=== PATIENT | female | born 1965 ===

== ENCOUNTER 2021-11-04 13:23 | Inpatient (IN) | payer MEDICAID ==
[2021-11-04 21:44] LABS: Basophils # (Auto) 0.1 K/mm3 (0.0-0.1); Basophils % (Auto) 1.5 % (0.0-1.8); Eosinophils # (Auto) 0.4 K/mm3 (0.0-0.4); Eosinophils % (Auto) 4.7 % (0.0-4.3); Hematocrit 39.2 % (30.3-42.9); Hemoglobin 13.1 gm/dl (10.1-14.3); Lymphocytes # (Auto) 1.8 K/mm3 (1.2-5.4); Lymphocytes % (Auto) 18.6 % (13.4-35.0); Mean Corpuscular HGB Conc 33 % (30-34); Mean Corpuscular Volume 93 fl (79-97); Monocytes # (Auto) 0.7 K/mm3 (0.0-0.8); Platelet Count 263 K/mm3 (140-440); Red Cell Distribution Width 13.5 % (13.2-15.2)
[2021-11-04 22:05] LABS: Calcium 9.9 mg/dL (8.4-10.2); Chol/HDL Ratio 2.39 %
[2021-11-04 22:12] LABS: Hepatitis B Surface Antigen Non-Reactive (Negative); Hepatitis C Virus Antibody Non-Reactive (NonReactive)
[2021-11-04] MEDS: TOPIRAMATE TAB 25 MG TAB PO SCH (23:33)
[2021-11-04] MEDS: BENZTROPINE 1 MG TAB PO SCH (23:33)
[2021-11-05] MEDS: QUEtiapine 200 MG TAB PO SCH ×2 (00:04→21:48)
[2021-11-05] MEDS: LEVOTHYROXINE 25 MCG TAB PO SCH (06:20)
[2021-11-05] MEDS: BENZTROPINE 1 MG TAB PO SCH ×2 (10:35→21:48)
[2021-11-05] MEDS: TOPIRAMATE TAB 25 MG TAB PO SCH ×2 (10:35→21:48)
--- NOTE | 2021-11-05 13:29 | History and Physical Report ---
GP History & Physical - History of Present Illness Date of admission: 11/04/21 Date of Examination: 11/05/21 Reason for Admission: Danger to self, Failure of Outpatient Treatment, Severe anxiety/depression History of Present Illness: The patient was seen today. The patient says he's in a lot of pain and wants to . He says he has pain in his legs and back. The patient says he wants to walk into traffic. He verbalizes feeling depressed. He says he has a history of schizoaffective disorder and takes invega sustenna, seroquel and topamax. The patient says he has his invega yesterday. He denies hallucinations. PAST PSYCHIATRIC HISTORY: Diagnoses: Schizoaffective Suicide attempts or Self-harm behavior: Denies Prior psychiatric hospitalizations:: Denies Substance Abuse history: Denies Previous psychiatric medications tried: invega, topmax, seroquel Outpatient treatment: Yes PAST MEDICAL HISTORY: Back injury Family Psychiatric History None reported or documented SOCIAL HISTORY Marital Status: Single Living Arrangements: alone Employment Status: Disabled Access to guns/weapons: Denies Education: History of Abuse: Denies Legal History: Denies REVIEW OF SYSTEMS ROS cannot be reliably obtained from the patient due to her confusion and somnolence. Constitutional: Negative for weight loss ENT: Negative for stridor Respiratory: Negative for cough or hemoptysis All other systems reviewed and are negative Diagnoses: Schizoaffective Disorder Treatment Plan Patient will be admitted for inpatient psychiatric evaluation, medication adjus tment and close monitoring The patient's behavior, mood, sleep and appetite will be closely monitored. Patient will be enrolled in individual and group therapeutic sessions and encouraged to attend. Patient will be provided with a safe and structured environment. Patient's physical health needs will be addressed by the Hospitalist. Hospitalist Consulted Labs including CBC, CMP, Lipid profile and Hemoglobin A1C ordered Social Assessment will be completed and the Ink Blender will work with patient and family to ensure a suitable and safe disposition Medication adjustment will be made as clinically indicated Continued home meds Usual Wellness [facility]/Preservation: - Start Trazodone 50 mg po QHS PRN - Start [place]-3 for brain health, reduce impulsivity, and as adjunctive treatment for mood disorder, continue upon discharge given overall benefits. The patient agreed on the treatment plan, understood the risk, benefit, alternative treatment, potential consequence of no treatment, and gave informed consent. Legal Status: Voluntary Reaction to Hospitalization: Accepting Medications and Allergies Allergies Allergy/AdvReac Type Severity Reaction Status Date / Time haloperidol [From Haldol] Allergy Swelling Verified 11/04/21 20:28 Home Medications Medication Instructions Recorded Confirmed Last Taken Type Benztropine [Cogentin] 1 mg PO BID 11/04/21 11/04/21 Unknown History Cyclobenzaprine [Flexeril] 10 mg PO HS 11/04/21 11/04/21 Unknown History Duloxetine HCl [Cymbalta] 60 mg PO DAILY 11/04/21 11/04/21 Unknown History Levothyroxine [Synthroid] 25 mcg PO QAM 11/04/21 11/04/21 Unknown History Magnesium Oxide 400 mg PO BID 11/04/21 11/04/21 Unknown History Meloxicam [Mobic] 7.5 mg PO QDAY 11/04/21 11/04/21 Unknown History Paliperidone Palmitate [Invega 234 mg IM QMONTH 11/04/21 11/04/21 11/04/21 History Sustenna] 234 mg Pravastatin [Pravachol] 40 mg PO QHS 11/04/21 11/04/21 Unknown History Quetiapine Fumarate [SEROquel] 400 mg PO HS 11/04/21 11/04/21 Unknown History Topiramate [Topamax] 50 mg PO BID 11/04/21 11/04/21 Unknown History lisinopriL [Lisinopril] 20 mg PO DAILY 11/04/21 11/04/21 Unknown History Active Meds: Active Medications Benztropine Mesylate (Benztropine 1 Mg Tab) 1 mg PO BID [facility] Last Admin: 11/05/21 10:35 Dose: 1 mg Levothyroxine Sodium (Levothyroxine 25 Mcg Tab) 25 mcg PO DAILY@0600 [facility] Last Admin: 11/05/21 06:20 Dose: 25 mcg Quetiapine Fumarate (Quetiapine 200 Mg Tab) 400 mg PO QHS [facility] Last Admin: 11/05/21 00:04 Dose: 400 mg Topiramate (Topiramate Tab 25 Mg Tab) 50 mg PO Q12HR [facility] Last Admin: 11/05/21 10:35 Dose: 50 mg Results - Results Labs/Vitals: Laboratory Last Values WBC 9.6 K/mm3 (4.5-11.0) 07/28/22 21:20 RBC 4.20 M/mm3 (3.65-5.03) 11/04/21 21:20 Hgb 13.1 gm/dl (10.1-14.3) 11/04/21 21:20 Hct 39.2 % (30.3-42.9) 11/04/21 21:20 MCV 93 fl (79-97) 11/04/21 21:20 MCH 31 pg (28-32) 11/04/21 21:20 MCHC 33 % (30-34) 11/04/21 21:20 RDW 13.5 % (13.2-15.2) 11/04/21 21:20 Plt Count 263 K/mm3 (140-440) 11/04/21 21:20 Lymph % (Auto) 18.6 % (13.4-35.0) 11/04/21 21:20 [place] % (Auto) 7.0 % (0.0-7.3) 11/04/21 21:20 Eos % (Auto) 4.7 % (0.0-4.3) H 11/04/21 21:20 Baso % (Auto) 1.5 % (0.0-1.8) 11/04/21 21:20 Lymph # (Auto) 1.8 K/mm3 (1.2-5.4) 11/04/21 21:20 [place] # (Auto) 0.7 K/mm3 (0.0-0.8) 11/04/21 21:20 Eos # (Auto) 0.4 K/mm3 (0.0-0.4) 11/04/21 21:20 Baso # (Auto) 0.1 K/mm3 (0.0-0.1) 11/04/21 21:20 Seg Neutrophils % 68.2 % (40.0-70.0) 11/04/21 21:20 Seg Neutrophils # 6.5 K/mm3 (1.8-7.7) 11/04/21 21:20 Sodium 139 mmol/L (137-145) 11/04/21 21:20 Potassium 4.1 mmol/L (3.6-5.0) 11/04/21 21:20 Chloride 104.4 mmol/L (98-107) 11/04/21 21:20 Carbon Dioxide 24 mmol/L (22-30) 11/04/21 21:20 Anion Gap 15 mmol/L 11/04/21 21:20 BUN 13 mg/dL (7-17) 11/04/21 21:20 Creatinine 1.0 mg/dL (0.6-1.2) 11/04/21 21:20 Estimated GFR 57 ml/min 11/04/21 21:20 BUN/Creatinine Ratio 13 % 11/04/21 21:20 Glucose 106 mg/dL (65-100) H 11/04/21 21:20 POC Glucose 100 mg/dL (70-105) 11/05/21 02:36 Hemoglobin A1c 5.8 % (4-6) 11/04/21 21:20 Calcium 9.9 mg/dL (8.4-10.2) 11/04/21 21:20 Total Bilirubin 0.30 mg/dL (0.1-1.2) 11/04/21 21:20 AST 33 units/L (5-40) 11/04/21 21:20 ALT 50 units/L (7-56) 11/04/21 21:20 Alkaline Phosphatase 119 units/L (35-129) 11/04/21 21:20 Total Protein 7.1 g/dL (6.3-8.2) 11/04/21 21:20 Albumin 4.0 g/dL (3.9-5) 11/04/21 21:20 Albumin/Globulin Ratio 1.3 % 11/04/21 21:20 Triglycerides 126 mg/dL (2-149) 11/04/21 21:20 Cholesterol 110 mg/dL (50-199) 11/04/21 21:20 LDL Cholesterol Direct 53 mg/dL (50-130) 11/04/21 21:20 HDL Cholesterol 46 mg/dL (40-59) 11/04/21 21:20 Cholesterol/HDL Ratio 2.39 % 11/04/21 21:20 TSH 3.230 mlU/mL (0.270-4.200) 11/04/21 21:20 Hepatitis A IgM Ab Non-reactive (NonReactive) 11/04/21 21:20 Hep Bs Antigen Non-reactive (Negative) 11/04/21 21:20 Hep B Core IgM Ab Non-reactive (NonReactive) 11/04/21 21:20 Hepatitis C Antibody Non-reactive (NonReactive) 11/04/21 21:20 Last Vital Signs Temp 98.3 F 11/05/21 04:11 Pulse 88 11/05/21 04:11 Resp 16 11/05/21 04:11 BP 127/59 11/05/21 04:11 Pulse Ox 96 11/05/21 04:11 Physical Examination - Constitutional Vitals: Vital Signs Temp Pulse Resp BP Pulse Ox 98.3 F 88 16 127/59 96 11/05/21 04:11 11/05/21 04:11 11/05/21 04:11 11/05/21 04:11 11/05/21 04:11 Temperature -Last 24 Hours Temperature 98.3 F Mental Status Exam - Vital signs Last Vital Signs Temp 98.3 F 11/05/21 04:11 Pulse 88 11/05/21 04:11 Resp 16 11/05/21 04:11 BP 127/59 11/05/21 04:11 Pulse Ox 96 11/05/21 04:11 Physician Certification - Certification Statement Physician Certification Statement: This is an acknowledgement statement that NEIL FERNANDEZ is a 56 year old F who requires inpatient psychiatric admission for treatment which could reasonably be expected to improve the patient's condition for Estimated period of time patient will need to remain in the hospital: [ ] Plan for post-hospital care: [ ]
[2021-11-05] MEDS ORDERED: NON-FORMULARY EACH (Duloxetine Hcl [Cymbalta] 60 MG Capsule.Dr) PO SCH (13:45)
--- NOTE | 2021-11-05 14:21 | Consultation ---
History of Present Illness - Reason for Consult Consult date: 11/05/21 Medical management - History of Present Illness Patient is a 56-year-old female past medical history of hypertension, hyper lipidemia, hypothyroidism, chronic back pain, depression, and schizoaffective disorder who presented due to thoughts of self-harm as a result of chronic back pain. Patient stated that desire to end her life. The patient has been admitted at [facility] for psychiatric evaluati on/treatment. The hospitalist service was consulted for medical management. Past History Past Medical History: hypertension, hyperlipidemia, other (Chronic back pain, depression, schizoaffective disorder) Past Surgical History: No surgical history Social history: lives with family, full code Family history: hypertension Medications and Allergies Allergies Allergy/AdvReac Type Severity Reaction Status Date / Time haloperidol [From Haldol] Allergy Swelling Verified 11/04/21 20:28 Home Medications Medication Instructions Recorded Confirmed Last Taken Type Benztropine [Cogentin] 1 mg PO BID 11/04/21 11/04/21 Unknown History Cyclobenzaprine [Flexeril] 10 mg PO HS 11/04/21 11/04/21 Unknown History Duloxetine HCl [Cymbalta] 60 mg PO DAILY 11/04/21 11/04/21 Unknown History Levothyroxine [Synthroid] 25 mcg PO QAM 11/04/21 11/04/21 Unknown History Magnesium Oxide 400 mg PO BID 11/04/21 11/04/21 Unknown History Meloxicam [Mobic] 7.5 mg PO QDAY 11/04/21 11/04/21 Unknown History Paliperidone Palmitate [Invega 234 mg IM QMONTH 11/04/21 11/04/21 11/04/21 History Sustenna] 234 mg Pravastatin [Pravachol] 40 mg PO QHS 11/04/21 11/04/21 Unknown History Quetiapine Fumarate [SEROquel] 400 mg PO HS 11/04/21 11/04/21 Unknown History Topiramate [Topamax] 50 mg PO BID 11/04/21 11/04/21 Unknown History lisinopriL [Lisinopril] 20 mg PO DAILY 11/04/21 11/04/21 Unknown History Active Meds: Active Medications Benztropine Mesylate (Benztropine 1 Mg Tab) 1 mg PO BID [facility] Last Admin: 11/05/21 10:35 Dose: 1 mg Cyclobenzaprine HCl (Cyclobenzaprine 10 Mg Tab) 10 mg PO HS [facility] Duloxetine HCl (Duloxetine 30 Mg Cap) 60 mg PO QDAY [facility] Levothyroxine Sodium (Levothyroxine 25 Mcg Tab) 25 mcg PO DAILY@0600 [facility] Last Admin: 11/05/21 06:20 Dose: 25 mcg Lisinopril (Lisinopril 20 Mg Tab) 20 mg PO DAILY [facility] Magnesium Oxide (Magnesium Oxide 400 Mg Tab) 400 mg PO BID [facility] Meloxicam (Meloxicam 7.5 Mg Tab) 7.5 mg PO QDAY [facility] Pravastatin Sodium (Pravastatin 40 Mg Tab) 40 mg PO QHS [facility] Quetiapine Fumarate (Quetiapine 200 Mg Tab) 400 mg PO QHS [facility] Last Admin: 11/05/21 00:04 Dose: 400 mg Topiramate (Topiramate Tab 25 Mg Tab) 50 mg PO Q12HR [facility] Last Admin: 11/05/21 10:35 Dose: 50 mg Review of Systems ROS unobtainable: due to mental status Exam - Constitutional Vitals: Temp Pulse Resp BP Pulse Ox 98.3 F 88 16 127/59 96 11/05/21 04:11 11/05/21 04:11 11/05/21 04:11 11/05/21 04:11 11/05/21 04:11 General appearance: Present: mild distress, well-nourished, obese - EENT Eyes: Present: PERRL, EOM intact ENT: hearing intact, clear oral mucosa - Neck Neck: Present: supple, normal ROM - Respiratory Respiratory effort: normal Respiratory: bilateral: CTA - Cardiovascular Rhythm: regular Heart Sounds: Present: S1 & S2 - Extremities Extremities: no ischemia, pulses intact, pulses symmetrical, No edema, normal t emperature, normal color Peripheral Pulses: within normal limits - Abdominal General gastrointestinal: Present: soft, non-tender, non-distended, normal bowel sounds Female genitourinary: Present: deferred - Rectal Rectal Exam: deferred - Integumentary Integumentary: Present: clear, warm, dry - Musculoskeletal Musculoskeletal: strength equal bilaterally - Psychiatric Psychiatric: agitated, depressed - Neurologic Neurologic: CNII-XII intact, moves all extremities - Allied Health Allied health notes reviewed: nursing Results - Labs CBC & Chem 7: 11/04/21 21:20 11/04/21 21:20 Labs: Abnormal lab results 11/04/21 11/04/21 Range/Units 21:20 21:20 Eos % (Auto) 4.7 H (0.0-4.3) % Glucose 106 H (65-100) mg/dL Assessment and Plan Patient is a 56-year-old female past medical history of hypertension, hyperlipidemia, hypothyroidism, chronic back pain, depression, and schizoaffective disorder who presented due to thoughts of self-harm as a result of chronic back pain. Patient stated that desire to end her life. The patient has been admitted at [facility] for psychiatric evaluation/treatment. The hospitalist service was consulted for medical management. #Suicidal ideation #Depression #Schizoaffective disorder Management per primary team #Hypertension #Hyperlipidemia - home medications: Lisinopril 20 mg daily and pravastatin 40 mg daily - current medications: Lisinopril 20 mg daily and pravastatin 40 mg daily - SBP goal <160 and DBP goal <90 while inpatient - continue to monitor #Hypothyroidism Continue home levothyroxine 25 mcg daily #Prediabetes Hemoglobin A1c 5.8 Continue to monitor #Chronic back pain Starting lidocaine patch to be applied to lower back + acetaminophen 500 mg every 6 hours as needed. #Morbid obesity #Weight loss counseling #Exercise counseling - BMI 44.3 - Counseled patient on the importance of weight loss, incorporating exercise, and dietary changes (lean meats, fresh fruits and vegetables, and water intake). Patient expresses understanding. - Time: +15 min #Advanced care planning -Disease education conducted, care plan discussed, diagnoses discussed, prognosis discussed, and patient acknowledges understanding with care plan -Time: +30 min Thank you for this interesting consult. The hospitalist service will continue to follow.
[2021-11-05] MEDS: CYCLOBENZAPRINE 10 MG TAB PO SCH (21:47)
[2021-11-05] MEDS: PRAVASTATIN 40 MG TAB PO SCH (21:48)
[2021-11-05] MEDS: MAGNESIUM OXIDE 400 MG TAB PO SCH (21:49)
[2021-11-05] MEDS ORDERED: QUEtiapine 200 MG TAB PO SCH (22:00)
[2021-11-06] MEDS: ACETAMINOPHEN 325 MG TAB PO PRN (04:11)
[2021-11-06] MEDS: LEVOTHYROXINE 25 MCG TAB PO SCH (06:10)
--- NOTE | 2021-11-06 08:33 | Progress Note ---
Subjective Date of service: 11/06/21 Principal diagnosis: Schizoaffective Subjective Comment: The patient was seen today. She says she is angry because another patient kept coming in her room and taking her things. She points at another patient. The patient says she didn't sleep all night because of her pain. She says the patient is making her suicidal. REVIEW OF SYSTEMS ROS cannot be reliably obtained from the patient due to her confusion and somn olence. Constitutional: Negative for weight loss ENT: Negative for stridor Respiratory: Negative for cough or hemoptysis All other systems reviewed and are negative MENTAL STATUS General Appearance and Behavior: age appropriate, good eye contact, cooperative with questioning and polite Cooperation: Cooperative Psychomotor Behavior: within normal limits Mood: angry Affect and affective range: Congruent with stated mood, tearful Thought Process: illogical, disorganized Thought Content: delusions, hallucinations Speech: Normal volume and Regular rate and rhythm Suicidal Ideation: Denies SI Homicidal Ideation: Denies HI Hallucinations: Denies Delusions: None elicited Impulse Control: intact Insight and Judgment: Limited Memory: Limited Attention: Distracted Orientation: alert and oriented Diagnoses: Schizoaffective Disorder Treatment Plan Patient will be admitted for inpatient psychiatric evaluation, medication adjustment and close monitoring The patient's behavior, mood, sleep and appetite will be closely monitored. Patient will be enrolled in individual and group therapeutic sessions and encouraged to attend. Patient will be provided with a safe and structured environment. Patient's physical health needs will be addressed by the Hospitalist. Hospitalist Consulted Labs including CBC, CMP, Lipid profile and Hemoglobin A1C ordered Social Assessment will be completed and the Nuclear Operator will work with patient and family to ensure a suitable and safe disposition Medication adjustment will be made as clinically indicated Increased Cymbalta 120mg po daily for depression and pain Usual Wellness [facility]/Preservation: - Start Trazodone 50 mg po QHS PRN - Start [place]-3 for brain health, reduce impulsivity, and as adjunctive treatment for mood disorder, continue upon discharge given overall benefits. The patient agreed on the treatment plan, understood the risk, benefit, alternative treatment, potential consequence of no treatment, and gave informed consent. Medications and Allergies Allergies Allergy/AdvReac Type Severity Reaction Status Date / Time haloperidol [From Haldol] Allergy Swelling Verified 11/04/21 20:28 Home Medications Medication Instructions Recorded Confirmed Last Taken Type Benztropine [Cogentin] 1 mg PO BID 11/04/21 11/04/21 Unknown History Cyclobenzaprine [Flexeril] 10 mg PO HS 11/04/21 11/04/21 Unknown History Duloxetine HCl [Cymbalta] 60 mg PO DAILY 11/04/21 11/04/21 Unknown History Levothyroxine [Synthroid] 25 mcg PO QAM 11/04/21 11/04/21 Unknown History Magnesium Oxide 400 mg PO BID 11/04/21 11/04/21 Unknown History Meloxicam [Mobic] 7.5 mg PO QDAY 11/04/21 11/04/21 Unknown History Paliperidone Palmitate [Invega 234 mg IM QMONTH 11/04/21 11/04/21 11/04/21 History Sustenna] 234 mg Pravastatin [Pravachol] 40 mg PO QHS 11/04/21 11/04/21 Unknown History Quetiapine Fumarate [SEROquel] 400 mg PO HS 11/04/21 11/04/21 Unknown History Topiramate [Topamax] 50 mg PO BID 11/04/21 11/04/21 Unknown History lisinopriL [Lisinopril] 20 mg PO DAILY 11/04/21 11/04/21 Unknown History Active Meds: Active Medications Acetaminophen (Acetaminophen 325 Mg Tab) 650 mg PO Q6H PRN PRN Reason: Pain, Mild (1-3) Last Admin: 11/06/21 04:11 Dose: 650 mg Benztropine Mesylate (Benztropine 1 Mg Tab) 1 mg PO BID [facility] Last Admin: 11/05/21 21:48 Dose: 1 mg Cyclobenzaprine HCl (Cyclobenzaprine 10 Mg Tab) 10 mg PO [facility] Last Admin: 11/05/21 21:47 Dose: 10 mg Duloxetine HCl (Duloxetine 30 Mg Cap) 60 mg PO QDAY [facility] Levothyroxine Sodium (Levothyroxine 25 Mcg Tab) 25 mcg PO DAILY@0600 [facility] Last Admin: 11/06/21 06:10 Dose: 25 mcg Lisinopril (Lisinopril 20 Mg Tab) 20 mg PO DAILY [facility] Magnesium Oxide (Magnesium Oxide 400 Mg Tab) 400 mg PO BID [facility] Last Admin: 11/05/21 21:49 Dose: 400 mg Meloxicam (Meloxicam 7.5 Mg Tab) 7.5 mg PO QDAY [facility] Pravastatin Sodium (Pravastatin 40 Mg Tab) 40 mg PO QHS [facility] Last Admin: 11/05/21 21:48 Dose: 40 mg Quetiapine Fumarate (Quetiapine 200 Mg Tab) 400 mg PO QHS [facility] Last Admin: 11/05/21 21:48 Dose: 400 mg Topiramate (Topiramate Tab 25 Mg Tab) 50 mg PO Q12HR [facility] Last Admin: 11/05/21 21:48 Dose: 50 mg Results - Results Labs/Vitals: Laboratory Last Values WBC 9.6 K/mm3 (4.5-11.0) 11/04/21 21:20 RBC 4.20 M/mm3 (3.65-5.03) 11/04/21 21:20 Hgb 13.1 gm/dl (10.1-14.3) 11/04/21 21:20 Hct 39.2 % (30.3-42.9) 11/04/21 21:20 MCV 93 fl (79-97) 11/04/21 21:20 MCH 31 pg (28-32) 11/04/21 21:20 MCHC 33 % (30-34) 11/04/21 21:20 RDW 13.5 % (13.2-15.2) 11/04/21 21:20 Plt Count 263 K/mm3 (140-440) 11/04/21 21:20 Lymph % (Auto) 18.6 % (13.4-35.0) 11/04/21 21:20 [place] % (Auto) 7.0 % (0.0-7.3) 11/04/21 21:20 Eos % (Auto) 4.7 % (0.0-4.3) H 11/04/21 21:20 Baso % (Auto) 1.5 % (0.0-1.8) 11/04/21 21:20 Lymph # (Auto) 1.8 K/mm3 (1.2-5.4) 11/04/21 21:20 [place] # (Auto) 0.7 K/mm3 (0.0-0.8) 11/04/21 21:20 Eos # (Auto) 0.4 K/mm3 (0.0-0.4) 11/04/21 21:20 Baso # (Auto) 0.1 K/mm3 (0.0-0.1) 11/04/21 21:20 Seg Neutrophils % 68.2 % (40.0-70.0) 11/04/21 21:20 Seg Neutrophils # 6.5 K/mm3 (1.8-7.7) 11/04/21 21:20 Sodium 139 mmol/L (137-145) 11/04/21 21:20 Potassium 4.1 mmol/L (3.6-5.0) 11/04/21 21:20 Chloride 104.4 mmol/L (98-107) 11/04/21 21:20 Carbon Dioxide 24 mmol/L (22-30) 11/04/21 21:20 Anion Gap 15 mmol/L 11/04/21 21:20 BUN 13 mg/dL (7-17) 11/04/21 21:20 Creatinine 1.0 mg/dL (0.6-1.2) 11/04/21 21:20 Estimated GFR 57 ml/min 11/04/21 21:20 BUN/Creatinine Ratio 13 % 11/04/21 21:20 Glucose 106 mg/dL (65-100) H 11/04/21 21:20 POC Glucose 100 mg/dL (70-105) 11/05/21 02:36 Hemoglobin A1c 5.8 % (4-6) 11/04/21 21:20 Calcium 9.9 mg/dL (8.4-10.2) 11/04/21 21:20 Total Bilirubin 0.30 mg/dL (0.1-1.2) 11/04/21 21:20 AST 33 units/L (5-40) 11/04/21 21:20 ALT 50 units/L (7-56) 11/04/21 21:20 Alkaline Phosphatase 119 units/L (35-129) 11/04/21 21:20 Total Protein 7.1 g/dL (6.3-8.2) 11/04/21 21:20 Albumin 4.0 g/dL (3.9-5) 11/04/21 21:20 Albumin/Globulin Ratio 1.3 % 11/04/21 21:20 Triglycerides 126 mg/dL (2-149) 11/04/21 21:20 Cholesterol 110 mg/dL (50-199) 11/04/21 21:20 LDL Cholesterol Direct 53 mg/dL (50-130) 11/04/21 21:20 HDL Cholesterol 46 mg/dL (40-59) 11/04/21 21:20 Cholesterol/HDL Ratio 2.39 % 11/04/21 21:20 TSH 3.230 mlU/mL (0.270-4.200) 11/04/21 21:20 Hepatitis A IgM Ab Non-reactive (NonReactive) 11/04/21 21:20 Hep Bs Antigen Non-reactive (Negative) 11/04/21 21:20 Hep B Core IgM Ab Non-reactive (NonReactive) 11/04/21 21:20 Hepatitis C Antibody Non-reactive (NonReactive) 11/04/21 21:20 Last Vital Signs Temp 98.9 F 11/05/21 20:00 Pulse 94 H 11/05/21 20:00 Resp 16 11/05/21 20:00 BP 104/67 11/05/21 20:00 Pulse Ox 100 11/05/21 20:00
[2021-11-06] MEDS: DULoxetine 30 MG CAP PO SCH (09:57)
[2021-11-06] MEDS: MELOXICAM 7.5 MG TAB PO SCH (09:57)
[2021-11-06] MEDS: MAGNESIUM OXIDE 400 MG TAB PO SCH ×2 (09:57→21:37)
[2021-11-06] MEDS: TOPIRAMATE TAB 25 MG TAB PO SCH ×2 (09:58→21:36)
[2021-11-06] MEDS: BENZTROPINE 1 MG TAB PO SCH ×2 (09:58→21:37)
[2021-11-06] MEDS ORDERED: DULoxetine 30 MG CAP PO SCH (10:00)
[2021-11-06] MEDS: LISINOPRIL 20 MG TAB PO SCH (10:00)
--- NOTE | 2021-11-06 10:03 | Progress Note ---
Assessment and Plan Assessment and plan: Patient is a 56-year-old female past medical history of hypertension, hyperlipidemia, hypothyroidism, chronic back pain, depression, and schizoaffective disorder who presented due to thoughts of self-harm as a result of chronic back pain. Patient stated that desire to end her life. The patient has been admitted at [facility] for psychiatric evaluation/treatment. The hospitalist service was consulted for medical management. #Suicidal ideation #Depression #Schizoaffective disorder Management per primary team #Hypertension #Hyperlipidemia - home medications: Lisinopril 20 mg daily and pravastatin 40 mg daily - current medications: Lisinopril 20 mg daily and pravastatin 40 mg daily - SBP goal <160 and DBP goal <90 while inpatient - continue to monitor #Hypothyroidism Continue home levothyroxine 25 mcg daily #Prediabetes Hemoglobin A1c 5.8 Continue to monitor #Chronic back pain Starting lidocaine patch to be applied to lower back + acetaminophen 500 mg every 6 hours as needed. #Morbid obesity #Weight loss counseling #Exercise counseling - BMI 44.3 - Counseled patient on the importance of weight loss, incorporating exercise, and dietary changes (lean meats, fresh fruits and vegetables, and water intake). Patient expresses understanding. - Time: +15 min #Advanced care planning -Disease education conducted, care plan discussed, diagnoses discussed, prognosis discussed, and patient acknowledges understanding with care plan -Time: +30 min Thank you for this interesting consult. The hospitalist service will continue to follow. Disposition Plan: Continue medical management Total Time Spent with Patient (Minutes): 30 min History Interval history: No acute events overnight. Hospitalist Physical - Physical exam Narrative exam: Patient refusing physical exam. - Constitutional Vitals: Temp Pulse Resp BP Pulse Ox 98.9 F 94 H 16 104/67 100 11/05/21 20:00 11/05/21 20:00 11/05/21 20:00 11/05/21 20:00 11/05/21 20:00 General appearance: Present: mild distress, well-nourished, obese - EENT Eyes: Present: PERRL, EOM intact ENT: hearing intact, clear oral mucosa - Neck Neck: Present: supple, normal ROM - Respiratory Respiratory effort: normal Respiratory: bilateral: CTA - Cardiovascular Rhythm: regular - Extremities Extremities: no ischemia, pulses intact, pulses symmetrical, No edema, normal temperature, normal color Peripheral Pulses: within normal limits - Abdominal General gastrointestinal: soft, non-tender, non-distended, normal bowel sounds - Integumentary Integumentary: Present: clear, warm, dry - Psychiatric Psychiatric: memory intact, agitated, depressed - Neurologic Neurologic: CNII-XII intact, moves all extremities - Allied Health Allied health notes reviewed: nursing Results - Labs CBC & Chem 7: 11/04/21 21:20 11/04/21 21:20 Labs: Laboratory Last Values WBC 9.6 K/mm3 (4.5-11.0) 11/04/21 21:20 RBC 4.20 M/mm3 (3.65-5.03) 11/04/21 21:20 Hgb 13.1 gm/dl (10.1-14.3) 11/04/21 21:20 Hct 39.2 % (30.3-42.9) 11/04/21 21:20 MCV 93 fl (79-97) 11/04/21 21:20 MCH 31 pg (28-32) 11/04/21 21:20 MCHC 33 % (30-34) 11/04/21 21:20 RDW 13.5 % (13.2-15.2) 11/04/21 21:20 Plt Count 263 K/mm3 (140-440) 11/04/21 21:20 Lymph % (Auto) 18.6 % (13.4-35.0) 11/04/21 21:20 [place] % (Auto) 7.0 % (0.0-7.3) 11/04/21 21:20 Eos % (Auto) 4.7 % (0.0-4.3) H 11/04/21 21:20 Baso % (Auto) 1.5 % (0.0-1.8) 11/04/21 21:20 Lymph # (Auto) 1.8 K/mm3 (1.2-5.4) 11/04/21 21:20 [place] # (Auto) 0.7 K/mm3 (0.0-0.8) 11/04/21 21:20 Eos # (Auto) 0.4 K/mm3 (0.0-0.4) 11/04/21 21:20 Baso # (Auto) 0.1 K/mm3 (0.0-0.1) 11/04/21 21:20 Seg Neutrophils % 68.2 % (40.0-70.0) 11/04/21 21:20 Seg Neutrophils # 6.5 K/mm3 (1.8-7.7) 11/04/21 21:20 Sodium 139 mmol/L (137-145) 11/04/21 21:20 Potassium 4.1 mmol/L (3.6-5.0) 11/04/21 21:20 Chloride 104.4 mmol/L (98-107) 11/04/21 21:20 Carbon Dioxide 24 mmol/L (22-30) 11/04/21 21:20 Anion Gap 15 mmol/L 11/04/21 21:20 BUN 13 mg/dL (7-17) 11/04/21 21:20 Creatinine 1.0 mg/dL (0.6-1.2) 11/04/21 21:20 Estimated GFR 57 ml/min 11/04/21 21:20 BUN/Creatinine Ratio 13 % 11/04/21 21:20 Glucose 106 mg/dL (65-100) H 11/04/21 21:20 POC Glucose 100 mg/dL (70-105) 11/05/21 02:36 Hemoglobin A1c 5.8 % (4-6) 11/04/21 21:20 Calcium 9.9 mg/dL (8.4-10.2) 11/04/21 21:20 Total Bilirubin 0.30 mg/dL (0.1-1.2) 11/04/21 21:20 AST 33 units/L (5-40) 11/04/21 21:20 ALT 50 units/L (7-56) 11/04/21 21:20 Alkaline Phosphatase 119 units/L (35-129) 11/04/21 21:20 Total Protein 7.1 g/dL (6.3-8.2) 11/04/21 21:20 Albumin 4.0 g/dL (3.9-5) 11/04/21 21:20 Albumin/Globulin Ratio 1.3 % 11/04/21 21:20 Triglycerides 126 mg/dL (2-149) 11/04/21 21:20 Cholesterol 110 mg/dL (50-199) 11/04/21 21:20 LDL Cholesterol Direct 53 mg/dL (50-130) 11/04/21 21:20 HDL Cholesterol 46 mg/dL (40-59) 11/04/21 21:20 Cholesterol/HDL Ratio 2.39 % 11/04/21 21:20 TSH 3.230 mlU/mL (0.270-4.200) 11/04/21 21:20 Hepatitis A IgM Ab Non-reactive (NonReactive) 11/04/21 21:20 Hep Bs Antigen Non-reactive (Negative) 11/04/21 21:20 Hep B Core IgM Ab Non-reactive (NonReactive) 11/04/21 21:20 Hepatitis C Antibody Non-reactive (NonReactive) 11/04/21 21:20 Brown/IV: Voiding Method Toilet Active Medications - Current Medications Current Medications: Generic Name Dose Route Start Last Admin Trade Name Freq PRN Reason Stop Dose Admin Acetaminophen 650 mg 11/06/21 03:51 11/06/21 04:11 Acetaminophen 325 Mg Tab PO 650 mg Q6H PRN Administration Pain, Mild (1-3) Benztropine Mesylate 1 mg 11/04/21 23:00 11/06/21 09:58 Benztropine 1 Mg Tab PO 1 mg BID EBONIE Administration Cyclobenzaprine HCl 10 mg 11/05/21 22:00 11/05/21 21:47 Cyclobenzaprine 10 Mg Tab PO 10 mg HS EBONIE Administration Duloxetine HCl 120 mg 11/06/21 10:00 11/06/21 09:57 Duloxetine 30 Mg Cap PO 120 mg QDAY EBONIE Administration Levothyroxine Sodium 25 mcg 11/05/21 06:00 11/06/21 06:10 Levothyroxine 25 Mcg Tab PO 25 mcg DAILY@0600 EBONIE Administration Lidocaine 1 each 11/06/21 10:00 Lidocaine 5% 1 Each Patch TD QDAY EBONIE Lisinopril 20 mg 11/06/21 10:00 11/06/21 10:00 Lisinopril 20 Mg Tab PO 20 mg DAILY EBONIE Administration Magnesium Oxide 400 mg 11/05/21 22:00 11/06/21 09:57 Magnesium Oxide 400 Mg Tab PO 400 mg BID EBONIE Administration Meloxicam 7.5 mg 11/06/21 10:00 11/06/21 09:57 Meloxicam 7.5 Mg Tab PO 7.5 mg QDAY EBONIE Administration Pravastatin Sodium 40 mg 11/05/21 22:00 11/05/21 21:48 Pravastatin 40 Mg Tab PO 40 mg QHS EBONIE Administration Quetiapine Fumarate 400 mg 11/05/21 00:15 11/05/21 21:48 Quetiapine 200 Mg Tab PO 400 mg QHS EBONIE Administration Topiramate 50 mg 11/04/21 23:00 11/06/21 09:58 Topiramate Tab 25 Mg Tab PO 50 mg Q12HR EBONIE Administration
[2021-11-06] MEDS: LIDOCAINE 5% 1 EACH PATCH TD SCH (11:57)
[2021-11-06] MEDS: CYCLOBENZAPRINE 10 MG TAB PO SCH (21:36)
[2021-11-06] MEDS: QUEtiapine 200 MG TAB PO SCH (21:36)
[2021-11-06] MEDS: PRAVASTATIN 40 MG TAB PO SCH (21:37)
[2021-11-07] MEDS: LEVOTHYROXINE 25 MCG TAB PO SCH (05:54)
[2021-11-07] MEDS: DULoxetine 30 MG CAP PO SCH (09:17)
[2021-11-07] MEDS: LIDOCAINE 5% 1 EACH PATCH TD SCH (09:18)
[2021-11-07] MEDS: BENZTROPINE 1 MG TAB PO SCH ×2 (09:18→21:10)
[2021-11-07] MEDS: LISINOPRIL 20 MG TAB PO SCH (09:18)
[2021-11-07] MEDS: MAGNESIUM OXIDE 400 MG TAB PO SCH ×2 (09:18→21:10)
[2021-11-07] MEDS: TOPIRAMATE TAB 25 MG TAB PO SCH ×3 (09:19→21:10)
[2021-11-07] MEDS: MELOXICAM 7.5 MG TAB PO SCH (09:20)
--- NOTE | 2021-11-07 09:59 | Progress Note ---
Subjective Date of service: 11/07/21 Principal diagnosis: Schizoaffective Subjective Comment: The patient was seen today. She says she's not doing good because she is hurting She says her pain is making her suicidal. The patient says she did not sleep well. She says her mood is up and down, and she gets angry out of nowhere. She says she's not getting her topiramate at the right time. She denies hallucinations. 11/06 The patient was seen today. She says she is angry because another patient kept coming in her room and taking her things. She points at another patient. The patient says she didn't sleep all night because of her pain. She says the patient is making her suicidal. REVIEW OF SYSTEMS ROS cannot be reliably obtained from the patient due to her confusion and somnolence. Constitutional: Negative for weight loss ENT: Negative for stridor Respiratory: Negative for cough or hemoptysis All other systems reviewed and are negative MENTAL STATUS General Appearance and Behavior: age appropriate, good eye contact, cooperative with questioning and polite Cooperation: Cooperative Psychomotor Behavior: within normal limits Mood: angry Affect and affective range: Congruent with stated mood, tearful Thought Process: illogical, disorganized Thought Content: delusions, hallucinations Speech: Normal volume and Regular rate and rhythm Suicidal Ideation: Denies SI Homicidal Ideation: Denies HI Hallucinations: Denies Delusions: None elicited Impulse Control: intact Insight and Judgment: Limited Memory: Limited Attention: Distracted Orientation: alert and oriented Diagnoses: Schizoaffective Disorder Treatment Plan Patient will be admitted for inpatient psychiatric evaluation, medication adjustment and close monitoring The patient's behavior, mood, sleep and appetite will be closely monitored. Patient will be enrolled in individual and group therapeutic sessions and encouraged to attend. Patient will be provided with a safe and structured environment. Patient's physical health needs will be addressed by the Hospitalist. Hospitalist Consulted Labs including CBC, CMP, Lipid profile and Hemoglobin A1C ordered Social Assessment will be completed and the Health Psychologist will work with patient and family to ensure a suitable and safe disposition Medication adjustment will be made as clinically indicated Increased Cymbalta 120mg po daily for depression and pain yesterday Usual Wellness Jew/Preservation: - Start Trazodone 50 mg po QHS PRN - Start [place]-3 for brain health, reduce impulsivity, and as adjunctive treatment for mood disorder, continue upon discharge given overall benefits. The patient agreed on the treatment plan, understood the risk, benefit, alternative treatment, potential consequence of no treatment, and gave informed consent. Medications and Allergies Allergies Allergy/AdvReac Type Severity Reaction Status Date / Time haloperidol [From Haldol] Allergy Swelling Verified 11/04/21 20:28 Home Medications Medication Instructions Recorded Confirmed Last Taken Type Benztropine [Cogentin] 1 mg PO BID 11/04/21 11/04/21 Unknown History Cyclobenzaprine [Flexeril] 10 mg PO HS 11/04/21 11/04/21 Unknown History Duloxetine HCl [Cymbalta] 60 mg PO DAILY 11/04/21 11/04/21 Unknown History Levothyroxine [Synthroid] 25 mcg PO QAM 11/04/21 11/04/21 Unknown History Magnesium Oxide 400 mg PO BID 11/04/21 11/04/21 Unknown History Meloxicam [Mobic] 7.5 mg PO QDAY 11/04/21 11/04/21 Unknown History Paliperidone Palmitate [Invega 234 mg IM QMONTH 11/04/21 11/04/21 11/04/21 History Sustenna] 234 mg Pravastatin [Pravachol] 40 mg PO QHS 11/04/21 11/04/21 Unknown History Quetiapine Fumarate [SEROquel] 400 mg PO HS 11/04/21 11/04/21 Unknown History Topiramate [Topamax] 50 mg PO BID 11/04/21 11/04/21 Unknown History lisinopriL [Lisinopril] 20 mg PO DAILY 11/04/21 11/04/21 Unknown History Active Meds: Active Medications Acetaminophen (Acetaminophen 325 Mg Tab) 650 mg PO Q6H PRN PRN Reason: Pain, Mild (1-3) Last Admin: 11/06/21 04:11 Dose: 650 mg Benztropine Mesylate (Benztropine 1 Mg Tab) 1 mg PO BID [facility] Last Admin: 11/07/21 09:18 Dose: 1 mg Cyclobenzaprine HCl (Cyclobenzaprine 10 Mg Tab) 10 mg PO [facility] Last Admin: 11/06/21 21:36 Dose: 10 mg Duloxetine HCl (Duloxetine 30 Mg Cap) 120 mg PO QDAY [facility] Last Admin: 11/07/21 09:17 Dose: 120 mg Levothyroxine Sodium (Levothyroxine 25 Mcg Tab) 25 mcg PO DAILY@0600 [facility] Last Admin: 11/07/21 05:54 Dose: 25 mcg Lidocaine (Lidocaine 5% 1 Each Patch) 1 each TD QDAY [facility] Last Admin: 11/07/21 09:18 Dose: 1 each Lisinopril (Lisinopril 20 Mg Tab) 20 mg PO DAILY [facility] Last Admin: 11/07/21 09:18 Dose: 20 mg Magnesium Oxide (Magnesium Oxide 400 Mg Tab) 400 mg PO BID [facility] Last Admin: 11/07/21 09:18 Dose: 400 mg Meloxicam (Meloxicam 7.5 Mg Tab) 7.5 mg PO QDAY [facility] Last Admin: 11/07/21 09:20 Dose: 7.5 mg Pravastatin Sodium (Pravastatin 40 Mg Tab) 40 mg PO QHS [facility] Last Admin: 11/06/21 21:37 Dose: 40 mg Quetiapine Fumarate (Quetiapine 200 Mg Tab) 400 mg PO QHS [facility] Last Admin: 11/06/21 21:36 Dose: 400 mg Topiramate (Topiramate Tab 25 Mg Tab) 50 mg PO Q12HR [facility] Last Admin: 11/07/21 09:19 Dose: 50 mg Results - Results Labs/Vitals: Laboratory Last Values WBC 9.6 K/mm3 (4.5-11.0) 11/04/21 21:20 RBC 4.20 M/mm3 (3.65-5.03) 11/04/21 21:20 Hgb 13.1 gm/dl (10.1-14.3) 11/04/21 21:20 Hct 39.2 % (30.3-42.9) 11/04/21 21:20 MCV 93 fl (79-97) 11/04/21 21:20 MCH 31 pg (28-32) 11/04/21 21:20 MCHC 33 % (30-34) 11/04/21 21:20 RDW 13.5 % (13.2-15.2) 11/04/21 21:20 Plt Count 263 K/mm3 (140-440) 11/04/21 21:20 Lymph % (Auto) 18.6 % (13.4-35.0) 11/04/21 21:20 [place] % (Auto) 7.0 % (0.0-7.3) 11/04/21 21:20 Eos % (Auto) 4.7 % (0.0-4.3) H 11/04/21 21:20 Baso % (Auto) 1.5 % (0.0-1.8) 11/04/21 21:20 Lymph # (Auto) 1.8 K/mm3 (1.2-5.4) 11/04/21 21:20 [place] # (Auto) 0.7 K/mm3 (0.0-0.8) 11/04/21 21:20 Eos # (Auto) 0.4 K/mm3 (0.0-0.4) 11/04/21 21:20 Baso # (Auto) 0.1 K/mm3 (0.0-0.1) 11/04/21 21:20 Seg Neutrophils % 68.2 % (40.0-70.0) 11/04/21 21:20 Seg Neutrophils # 6.5 K/mm3 (1.8-7.7) 11/04/21 21:20 Sodium 139 mmol/L (137-145) 11/04/21 21:20 Potassium 4.1 mmol/L (3.6-5.0) 11/04/21 21:20 Chloride 104.4 mmol/L (98-107) 11/04/21 21:20 Carbon Dioxide 24 mmol/L (22-30) 11/04/21 21:20 Anion Gap 15 mmol/L 11/04/21 21:20 BUN 13 mg/dL (7-17) 11/04/21 21:20 Creatinine 1.0 mg/dL (0.6-1.2) 11/04/21 21:20 Estimated GFR 57 ml/min 11/04/21 21:20 BUN/Creatinine Ratio 13 % 11/04/21 21:20 Glucose 106 mg/dL (65-100) H 11/04/21 21:20 POC Glucose 100 mg/dL (70-105) 11/05/21 02:36 Hemoglobin A1c 5.8 % (4-6) 11/04/21 21:20 Calcium 9.9 mg/dL (8.4-10.2) 11/04/21 21:20 Total Bilirubin 0.30 mg/dL (0.1-1.2) 11/04/21 21:20 AST 33 units/L (5-40) 11/04/21 21:20 ALT 50 units/L (7-56) 11/04/21 21:20 Alkaline Phosphatase 119 units/L (35-129) 11/04/21 21:20 Total Protein 7.1 g/dL (6.3-8.2) 11/04/21 21:20 Albumin 4.0 g/dL (3.9-5) 11/04/21 21:20 Albumin/Globulin Ratio 1.3 % 11/04/21 21:20 Triglycerides 126 mg/dL (2-149) 11/04/21 21:20 Cholesterol 110 mg/dL (50-199) 11/04/21 21:20 LDL Cholesterol Direct 53 mg/dL (50-130) 11/04/21 21:20 HDL Cholesterol 46 mg/dL (40-59) 11/04/21 21:20 Cholesterol/HDL Ratio 2.39 % 11/04/21 21:20 TSH 3.230 mlU/mL (0.270-4.200) 11/04/21 21:20 Hepatitis A IgM Ab Non-reactive (NonReactive) 11/04/21 21:20 Hep Bs Antigen Non-reactive (Negative) 11/04/21 21:20 Hep B Core IgM Ab Non-reactive (NonReactive) 11/04/21 21:20 Hepatitis C Antibody Non-reactive (NonReactive) 11/04/21 21:20 Last Vital Signs Temp 98.3 F 11/06/21 19:21 Pulse 91 H 11/06/21 19:21 Resp 17 11/06/21 19:21 BP 127/68 11/06/21 19:21 Pulse Ox 94 11/06/21 19:21
[2021-11-07] MEDS: CYCLOBENZAPRINE 10 MG TAB PO SCH (21:10)
[2021-11-07] MEDS: PRAVASTATIN 40 MG TAB PO SCH (21:10)
[2021-11-07] MEDS: QUEtiapine 200 MG TAB PO SCH (21:10)
[2021-11-07] MEDS: traZODone 50 MG TAB PO SCH (21:10)
[2021-11-07] MEDS: ACETAMINOPHEN 325 MG TAB PO PRN (23:33)
[2021-11-08] MEDS: LEVOTHYROXINE 25 MCG TAB PO SCH (06:16)
[2021-11-08] MEDS: DULoxetine 30 MG CAP PO SCH (09:32)
[2021-11-08] MEDS: LIDOCAINE 5% 1 EACH PATCH TD SCH (09:32)
[2021-11-08] MEDS: MAGNESIUM OXIDE 400 MG TAB PO SCH ×2 (09:33→21:57)
[2021-11-08] MEDS: TOPIRAMATE TAB 25 MG TAB PO SCH ×2 (09:33→21:58)
[2021-11-08] MEDS: LISINOPRIL 20 MG TAB PO SCH (09:33)
[2021-11-08] MEDS: BENZTROPINE 1 MG TAB PO SCH ×2 (09:33→21:56)
[2021-11-08] MEDS: MELOXICAM 7.5 MG TAB PO SCH (09:34)
--- NOTE | 2021-11-08 11:45 | Progress Note ---
Subjective Date of service: 11/08/21 Principal diagnosis: Schizoaffective Subjective Comment: The patient was seen today. She is complaining of leg pain. She also says she has a cough and her throat got really sore last night. She denies hallucinations or SI/HI. 11/07 The patient was seen today. She says she's not doing good because she is hurting She says her pain is making her suicidal. The patient says she did not sleep well. She says her mood is up and down, and she gets angry out of nowhere. She says she's not getting her topiramate at the right time. She denies hallucinations. 11/06 The patient was seen today. She says she is angry because another patient kept coming in her room and taking her things. She points at another patient. The patient says she didn't sleep all night because of her pain. She says the patient is making her suicidal. REVIEW OF SYSTEMS ROS cannot be reliably obtained from the patient due to her confusion and somnolence. Constitutional: Negative for weight loss ENT: Negative for stridor Respiratory: Negative for cough or hemoptysis All other systems reviewed and are negative MENTAL STATUS General Appearance and Behavior: age appropriate, good eye contact, cooperative with questioning and polite Cooperation: Cooperative Psychomotor Behavior: within normal limits Mood: angry Affect and affective range: Congruent with stated mood, tearful Thought Process: illogical, disorganized Thought Content: delusions, hallucinations Speech: Normal volume and Regular rate and rhythm Suicidal Ideation: Denies SI Homicidal Ideation: Denies HI Hallucinations: Denies Delusions: None elicited Impulse Control: intact Insight and Judgment: Limited Memory: Limited Attention: Distracted Orientation: alert and oriented Diagnoses: Schizoaffective Disorder Treatment Plan Patient will be admitted for inpatient psychiatric evaluation, medication adjustment and close monitoring The patient's behavior, mood, sleep and appetite will be closely monitored. Patient will be enrolled in individual and group therapeutic sessions and encouraged to attend. Patient will be provided with a safe and structured environment. Patient's physical health needs will be addressed by the Hospitalist. Hospitalist Consulted Labs including CBC, CMP, Lipid profile and Hemoglobin A1C ordered Social Assessment will be completed and the Help Desk Support will work with patient and family to ensure a suitable and safe disposition Medication adjustment will be made as clinically indicated No changes made today Usual Wellness Confucianism/Preservation: - Start Trazodone 50 mg po QHS PRN - Start [place]-3 for brain health, reduce impulsivity, and as adjunctive treatment for mood disorder, continue upon discharge given overall benefits. The patient agreed on the treatment plan, understood the risk, benefit, alternative treatment, potential consequence of no treatment, and gave informed consent. Medications and Allergies Allergies Allergy/AdvReac Type Severity Reaction Status Date / Time haloperidol [From Haldol] Allergy Swelling Verified 11/04/21 20:28 Home Medications Medication Instructions Recorded Confirmed Last Taken Type Benztropine [Cogentin] 1 mg PO BID 11/04/21 11/04/21 Unknown History Cyclobenzaprine [Flexeril] 10 mg PO HS 11/04/21 11/04/21 Unknown History Duloxetine HCl [Cymbalta] 60 mg PO DAILY 11/04/21 11/04/21 Unknown History Levothyroxine [Synthroid] 25 mcg PO QAM 11/04/21 11/04/21 Unknown History Magnesium Oxide 400 mg PO BID 11/04/21 11/04/21 Unknown History Meloxicam [Mobic] 7.5 mg PO QDAY 11/04/21 11/04/21 Unknown History Paliperidone Palmitate [Invega 234 mg IM QMONTH 11/04/21 11/04/21 11/04/21 History Sustenna] 234 mg Pravastatin [Pravachol] 40 mg PO QHS 11/04/21 11/04/21 Unknown History Quetiapine Fumarate [SEROquel] 400 mg PO HS 11/04/21 11/04/21 Unknown History Topiramate [Topamax] 50 mg PO BID 11/04/21 11/04/21 Unknown History lisinopriL [Lisinopril] 20 mg PO DAILY 11/04/21 11/04/21 Unknown History Active Meds: Active Medications Acetaminophen (Acetaminophen 325 Mg Tab) 650 mg PO Q6H PRN PRN Reason: Pain, Mild (1-3) Last Admin: 11/07/21 23:33 Dose: 650 mg Benztropine Mesylate (Benztropine 1 Mg Tab) 1 mg PO BID [facility] Last Admin: 11/08/21 09:33 Dose: 1 mg Cyclobenzaprine HCl (Cyclobenzaprine 10 Mg Tab) 10 mg PO [facility] Last Admin: 11/07/21 21:10 Dose: 10 mg Duloxetine HCl (Duloxetine 30 Mg Cap) 120 mg PO QDAY [facility] Last Admin: 11/08/21 09:32 Dose: 120 mg Levothyroxine Sodium (Levothyroxine 25 Mcg Tab) 25 mcg PO DAILY@0600 [facility] Last Admin: 11/08/21 06:16 Dose: 25 mcg Lidocaine (Lidocaine 5% 1 Each Patch) 1 each TD QDAY [facility] Last Admin: 11/08/21 09:32 Dose: 1 each Lisinopril (Lisinopril 20 Mg Tab) 20 mg PO DAILY [facility] Last Admin: 11/08/21 09:33 Dose: 20 mg Magnesium Oxide (Magnesium Oxide 400 Mg Tab) 400 mg PO BID [facility] Last Admin: 11/08/21 09:33 Dose: 400 mg Meloxicam (Meloxicam 7.5 Mg Tab) 7.5 mg PO QDAY [facility] Last Admin: 11/08/21 09:34 Dose: 7.5 mg Pravastatin Sodium (Pravastatin 40 Mg Tab) 40 mg PO QHS [facility] Last Admin: 11/07/21 21:10 Dose: 40 mg Quetiapine Fumarate (Quetiapine 200 Mg Tab) 400 mg PO QHS [facility] Last Admin: 11/07/21 21:10 Dose: 400 mg Topiramate (Topiramate Tab 25 Mg Tab) 50 mg PO BID [facility] Last Admin: 11/08/21 09:33 Dose: 50 mg Trazodone HCl (Trazodone 50 Mg Tab) 50 mg PO QHS [facility] Last Admin: 11/07/21 21:10 Dose: 50 mg Results - Results Labs/Vitals: Laboratory Last Values WBC 9.6 K/mm3 (4.5-11.0) 11/04/21 21:20 RBC 4.20 M/mm3 (3.65-5.03) 11/04/21 21:20 Hgb 13.1 gm/dl (10.1-14.3) 11/04/21 21:20 Hct 39.2 % (30.3-42.9) 11/04/21 21:20 MCV 93 fl (79-97) 11/04/21 21:20 MCH 31 pg (28-32) 11/04/21 21:20 MCHC 33 % (30-34) 11/04/21 21:20 RDW 13.5 % (13.2-15.2) 11/04/21 21:20 Plt Count 263 K/mm3 (140-440) 11/04/21 21:20 Lymph % (Auto) 18.6 % (13.4-35.0) 11/04/21 21:20 [place] % (Auto) 7.0 % (0.0-7.3) 11/04/21 21:20 Eos % (Auto) 4.7 % (0.0-4.3) H 11/04/21 21:20 Baso % (Auto) 1.5 % (0.0-1.8) 11/04/21 21:20 Lymph # (Auto) 1.8 K/mm3 (1.2-5.4) 11/04/21 21:20 [place] # (Auto) 0.7 K/mm3 (0.0-0.8) 11/04/21 21:20 Eos # (Auto) 0.4 K/mm3 (0.0-0.4) 11/04/21 21:20 Baso # (Auto) 0.1 K/mm3 (0.0-0.1) 11/04/21 21:20 Seg Neutrophils % 68.2 % (40.0-70.0) 11/04/21 21:20 Seg Neutrophils # 6.5 K/mm3 (1.8-7.7) 11/04/21 21:20 Sodium 139 mmol/L (137-145) 11/04/21 21:20 Potassium 4.1 mmol/L (3.6-5.0) 11/04/21 21:20 Chloride 104.4 mmol/L (98-107) 11/04/21 21:20 Carbon Dioxide 24 mmol/L (22-30) 11/04/21 21:20 Anion Gap 15 mmol/L 11/04/21 21:20 BUN 13 mg/dL (7-17) 11/04/21 21:20 Creatinine 1.0 mg/dL (0.6-1.2) 11/04/21 21:20 Estimated GFR 57 ml/min 11/04/21 21:20 BUN/Creatinine Ratio 13 % 11/04/21 21:20 Glucose 106 mg/dL (65-100) H 11/04/21 21:20 POC Glucose 100 mg/dL (70-105) 11/05/21 02:36 Hemoglobin A1c 5.8 % (4-6) 11/04/21 21:20 Calcium 9.9 mg/dL (8.4-10.2) 11/04/21 21:20 Total Bilirubin 0.30 mg/dL (0.1-1.2) 11/04/21 21:20 AST 33 units/L (5-40) 11/04/21 21:20 ALT 50 units/L (7-56) 11/04/21 21:20 Alkaline Phosphatase 119 units/L (35-129) 11/04/21 21:20 Total Protein 7.1 g/dL (6.3-8.2) 11/04/21 21:20 Albumin 4.0 g/dL (3.9-5) 11/04/21 21:20 Albumin/Globulin Ratio 1.3 % 11/04/21 21:20 Triglycerides 126 mg/dL (2-149) 11/04/21 21:20 Cholesterol 110 mg/dL (50-199) 11/04/21 21:20 LDL Cholesterol Direct 53 mg/dL (50-130) 11/04/21 21:20 HDL Cholesterol 46 mg/dL (40-59) 11/04/21 21:20 Cholesterol/HDL Ratio 2.39 % 11/04/21 21:20 TSH 3.230 mlU/mL (0.270-4.200) 11/04/21 21:20 Hepatitis A IgM Ab Non-reactive (NonReactive) 11/04/21 21:20 Hep Bs Antigen Non-reactive (Negative) 11/04/21 21:20 Hep B Core IgM Ab Non-reactive (NonReactive) 11/04/21 21:20 Hepatitis C Antibody Non-reactive (NonReactive) 11/04/21 21:20 Last Vital Signs Temp 97.1 F L 11/08/21 07:49 Pulse 91 H 11/08/21 07:49 Resp 16 11/08/21 07:49 BP 104/63 11/08/21 07:49 Pulse Ox 96 11/08/21 07:49
--- NOTE | 2021-11-08 18:39 | Progress Note ---
Hospitalist Physical - Constitutional Vitals: Temp Pulse Resp BP Pulse Ox 97.1 F L 91 H 16 104/63 96 11/08/21 07:49 11/08/21 07:49 11/08/21 07:49 11/08/21 07:49 11/08/21 07:49 General appearance: Present: mild distress, well-nourished, obese Results - Labs CBC & Chem 7: 11/04/21 21:20 11/04/21 21:20 Labs: Laboratory Last Values WBC 9.6 K/mm3 (4.5-11.0) 11/04/21 21:20 RBC 4.20 M/mm3 (3.65-5.03) 11/04/21 21:20 Hgb 13.1 gm/dl (10.1-14.3) 11/04/21 21:20 Hct 39.2 % (30.3-42.9) 11/04/21 21:20 MCV 93 fl (79-97) 11/04/21 21:20 MCH 31 pg (28-32) 11/04/21 21:20 MCHC 33 % (30-34) 11/04/21 21:20 RDW 13.5 % (13.2-15.2) 11/04/21 21:20 Plt Count 263 K/mm3 (140-440) 11/04/21 21:20 Lymph % (Auto) 18.6 % (13.4-35.0) 11/04/21 21:20 [place] % (Auto) 7.0 % (0.0-7.3) 11/04/21 21:20 Eos % (Auto) 4.7 % (0.0-4.3) H 11/04/21 21:20 Baso % (Auto) 1.5 % (0.0-1.8) 11/04/21 21:20 Lymph # (Auto) 1.8 K/mm3 (1.2-5.4) 11/04/21 21:20 [place] # (Auto) 0.7 K/mm3 (0.0-0.8) 11/04/21 21:20 Eos # (Auto) 0.4 K/mm3 (0.0-0.4) 11/04/21 21:20 Baso # (Auto) 0.1 K/mm3 (0.0-0.1) 11/04/21 21:20 Seg Neutrophils % 68.2 % (40.0-70.0) 11/04/21 21:20 Seg Neutrophils # 6.5 K/mm3 (1.8-7.7) 11/04/21 21:20 Sodium 139 mmol/L (137-145) 11/04/21 21:20 Potassium 4.1 mmol/L (3.6-5.0) 11/04/21 21:20 Chloride 104.4 mmol/L (98-107) 11/04/21 21:20 Carbon Dioxide 24 mmol/L (22-30) 11/04/21 21:20 Anion Gap 15 mmol/L 11/04/21 21:20 BUN 13 mg/dL (7-17) 11/04/21 21:20 Creatinine 1.0 mg/dL (0.6-1.2) 11/04/21 21:20 Estimated GFR 57 ml/min 11/04/21 21:20 BUN/Creatinine Ratio 13 % 11/04/21 21:20 Glucose 106 mg/dL (65-100) H 11/04/21 21:20 POC Glucose 100 mg/dL (70-105) 11/05/21 02:36 Hemoglobin A1c 5.8 % (4-6) 11/04/21 21:20 Calcium 9.9 mg/dL (8.4-10.2) 11/04/21 21:20 Total Bilirubin 0.30 mg/dL (0.1-1.2) 11/04/21 21:20 AST 33 units/L (5-40) 11/04/21 21:20 ALT 50 units/L (7-56) 11/04/21 21:20 Alkaline Phosphatase 119 units/L (35-129) 11/04/21 21:20 Total Protein 7.1 g/dL (6.3-8.2) 11/04/21 21:20 Albumin 4.0 g/dL (3.9-5) 11/04/21 21:20 Albumin/Globulin Ratio 1.3 % 11/04/21 21:20 Triglycerides 126 mg/dL (2-149) 11/04/21 21:20 Cholesterol 110 mg/dL (50-199) 11/04/21 21:20 LDL Cholesterol Direct 53 mg/dL (50-130) 11/04/21 21:20 HDL Cholesterol 46 mg/dL (40-59) 11/04/21 21:20 Cholesterol/HDL Ratio 2.39 % 11/04/21 21:20 TSH 3.230 mlU/mL (0.270-4.200) 11/04/21 21:20 Hepatitis A IgM Ab Non-reactive (NonReactive) 11/04/21 21:20 Hep Bs Antigen Non-reactive (Negative) 11/04/21 21:20 Hep B Core IgM Ab Non-reactive (NonReactive) 11/04/21 21:20 Hepatitis C Antibody Non-reactive (NonReactive) 11/04/21 21:20 Brown/IV: Voiding Method Toilet Active Medications - Current Medications Current Medications: Generic Name Dose Route Start Last Admin Trade Name Freq PRN Reason Stop Dose Admin Acetaminophen 650 mg 11/06/21 03:51 11/07/21 23:33 Acetaminophen 325 Mg Tab PO 650 mg Q6H PRN Administration Pain, Mild (1-3) Benztropine Mesylate 1 mg 11/04/21 23:00 11/08/21 09:33 Benztropine 1 Mg Tab PO 1 mg BID EBONIE Administration Cyclobenzaprine HCl 10 mg 11/05/21 22:00 11/07/21 21:10 Cyclobenzaprine 10 Mg Tab PO 10 mg HS EBONIE Administration Duloxetine HCl 120 mg 11/06/21 10:00 11/08/21 09:32 Duloxetine 30 Mg Cap PO 120 mg QDAY EBONIE Administration Levothyroxine Sodium 25 mcg 11/05/21 06:00 11/08/21 06:16 Levothyroxine 25 Mcg Tab PO 25 mcg DAILY@0600 EBONIE Administration Lidocaine 1 each 11/06/21 10:00 11/08/21 09:32 Lidocaine 5% 1 Each Patch TD 1 each QDAY EBONIE Administration Lisinopril 20 mg 11/06/21 10:00 11/08/21 09:33 Lisinopril 20 Mg Tab PO 20 mg DAILY EBONIE Administration Magnesium Oxide 400 mg 11/05/21 22:00 11/08/21 09:33 Magnesium Oxide 400 Mg Tab PO 400 mg BID EBONIE Administration Meloxicam 7.5 mg 11/06/21 10:00 11/08/21 09:34 Meloxicam 7.5 Mg Tab PO 7.5 mg QDAY EBONIE Administration Pravastatin Sodium 40 mg 11/05/21 22:00 11/07/21 21:10 Pravastatin 40 Mg Tab PO 40 mg QHS EBONIE Administration Quetiapine Fumarate 400 mg 11/05/21 00:15 11/07/21 21:10 Quetiapine 200 Mg Tab PO 400 mg QHS EBONIE Administration Topiramate 50 mg 11/07/21 11:00 11/08/21 09:33 Topiramate Tab 25 Mg Tab PO 50 mg BID EBONIE Administration Trazodone HCl 50 mg 11/07/21 22:00 11/07/21 21:10 Trazodone 50 Mg Tab PO 50 mg QHS EBONIE Administration
[2021-11-08] MEDS: traZODone 50 MG TAB PO SCH (21:57)
[2021-11-08] MEDS: QUEtiapine 200 MG TAB PO SCH (21:57)
[2021-11-08] MEDS: PRAVASTATIN 40 MG TAB PO SCH (21:57)
[2021-11-08] MEDS: CYCLOBENZAPRINE 10 MG TAB PO SCH (21:57)
[2021-11-09] MEDS: LEVOTHYROXINE 25 MCG TAB PO SCH (06:26)
--- NOTE | 2021-11-09 09:13 | Discharge Summary ---
Providers - Providers Date of Admission: 11/04/21 20:54 Date of discharge: 11/09/21 Attending physician: SHAHIDA MARES MD 11/04/21 20:32 Consult to Physician [CONS] Routine Comment: Consulting Provider: MOY BECERRA Physician Instructions: Reason For Exam: new psych admission Primary care physician: SISTER SUPERIOR Hospitalization Reason for admission: agitation Admitting Diagnosis: F39 - UNSPECIFIED MOOD [AFFECTIVE] DISORDER Condition: Stable Hospital course: The patient was provided inpatient psychiatric treatment with safe and supportive care, medication adjustment, adverse effect monitoring, medical evaluations, medical treatments, assessment and psycho-education. The patient's mood, cognition, behavior, moral support are improved and stabilized. St the time of discharge, the patient had no endangering behavior and no debilitating adverse effects. The patient agreed on potential consequences of no treatment and gave informed consent. Disposition: 01 HOME / SELF CARE / HOMELESS Time spent for discharge: 35 Allergies/Adverse Reactions: Allergies haloperidol [From Haldol] Allergy (Verified 11/04/21 20:28) Swelling Vital Signs: Last Vital Signs Temp 97.1 F L 11/08/21 07:49 Pulse 91 H 11/08/21 07:49 Resp 16 11/08/21 07:49 BP 104/63 11/08/21 07:49 Pulse Ox 96 11/08/21 07:49 Last Lab: Laboratory Last Values WBC 9.6 K/mm3 (4.5-11.0) 11/04/21 21:20 RBC 4.20 M/mm3 (3.65-5.03) 11/04/21 21:20 Hgb 13.1 gm/dl (10.1-14.3) 11/04/21 21:20 Hct 39.2 % (30.3-42.9) 11/04/21 21:20 MCV 93 fl (79-97) 11/04/21 21:20 MCH 31 pg (28-32) 11/04/21 21:20 MCHC 33 % (30-34) 11/04/21 21:20 RDW 13.5 % (13.2-15.2) 11/04/21 21:20 Plt Count 263 K/mm3 (140-440) 11/04/21 21:20 Lymph % (Auto) 18.6 % (13.4-35.0) 11/04/21 21:20 [place] % (Auto) 7.0 % (0.0-7.3) 11/04/21 21:20 Eos % (Auto) 4.7 % (0.0-4.3) H 11/04/21 21:20 Baso % (Auto) 1.5 % (0.0-1.8) 11/04/21 21:20 Lymph # (Auto) 1.8 K/mm3 (1.2-5.4) 11/04/21 21:20 [place] # (Auto) 0.7 K/mm3 (0.0-0.8) 11/04/21 21:20 Eos # (Auto) 0.4 K/mm3 (0.0-0.4) 11/04/21 21:20 Baso # (Auto) 0.1 K/mm3 (0.0-0.1) 11/04/21 21:20 Seg Neutrophils % 68.2 % (40.0-70.0) 11/04/21 21:20 Seg Neutrophils # 6.5 K/mm3 (1.8-7.7) 11/04/21 21:20 Sodium 139 mmol/L (137-145) 11/04/21 21:20 Potassium 4.1 mmol/L (3.6-5.0) 11/04/21 21:20 Chloride 104.4 mmol/L (98-107) 11/04/21 21:20 Carbon Dioxide 24 mmol/L (22-30) 11/04/21 21:20 Anion Gap 15 mmol/L 11/04/21 21:20 BUN 13 mg/dL (7-17) 11/04/21 21:20 Creatinine 1.0 mg/dL (0.6-1.2) 11/04/21 21:20 Estimated GFR 57 ml/min 11/04/21 21:20 BUN/Creatinine Ratio 13 % 11/04/21 21:20 Glucose 106 mg/dL (65-100) H 11/04/21 21:20 POC Glucose 100 mg/dL (70-105) 11/05/21 02:36 Hemoglobin A1c 5.8 % (4-6) 11/04/21 21:20 Calcium 9.9 mg/dL (8.4-10.2) 11/04/21 21:20 Total Bilirubin 0.30 mg/dL (0.1-1.2) 11/04/21 21:20 AST 33 units/L (5-40) 11/04/21 21:20 ALT 50 units/L (7-56) 11/04/21 21:20 Alkaline Phosphatase 119 units/L (35-129) 11/04/21 21:20 Total Protein 7.1 g/dL (6.3-8.2) 11/04/21 21:20 Albumin 4.0 g/dL (3.9-5) 11/04/21 21:20 Albumin/Globulin Ratio 1.3 % 11/04/21 21:20 Triglycerides 126 mg/dL (2-149) 11/04/21 21:20 Cholesterol 110 mg/dL (50-199) 11/04/21 21:20 LDL Cholesterol Direct 53 mg/dL (50-130) 11/04/21 21:20 HDL Cholesterol 46 mg/dL (40-59) 11/04/21 21:20 Cholesterol/HDL Ratio 2.39 % 11/04/21 21:20 TSH 3.230 mlU/mL (0.270-4.200) 11/04/21 21:20 Hepatitis A IgM Ab Non-reactive (NonReactive) 11/04/21 21:20 Hep Bs Antigen Non-reactive (Negative) 11/04/21 21:20 Hep B Core IgM Ab Non-reactive (NonReactive) 11/04/21 21:20 Hepatitis C Antibody Non-reactive (NonReactive) 11/04/21 21:20 Core Measure Documentation - Palliative Care Palliative Care/ Comfort Measures: Not Applicable - Core Measures Any of the following diagnoses?: none Exam - Constitutional Vitals: Temp Pulse Resp BP Pulse Ox 97.1 F L 91 H 16 104/63 96 11/08/21 07:49 11/08/21 07:49 11/08/21 07:49 11/08/21 07:49 11/08/21 07:49 General appearance: Present: no acute distress - EENT Eyes: Present: PERRL, EOM intact ENT: hearing intact, clear oral mucosa - Neck Neck: Present: supple, normal ROM - Respiratory Respiratory effort: normal Plan Activity: advance as tolerated Weight Bearing Status: Weight Bear as Tolerated Care Plan Goals: Maintain good and stable mental health Plan of Treatment: The patient should be compliant with medications, not to use drugs, and not to drink alcohol. The patient understands that if suicidal ideas, homicidal ideas or any endangering feeling arise, the patient should seek assistance including, but not limited to crisis hotline, and emergency room. Assessment: Schizoaffective Disorder Follow up with: PRIMARY CARE, [Primary Care Provider] - 7 Days Prescriptions: traZODone [Desyrel] 50 mg PO QHS #30 tablet Duloxetine HCl [Cymbalta] 120 mg PO DAILY #60
[2021-11-09] MEDS: MELOXICAM 7.5 MG TAB PO SCH (09:34)
[2021-11-09] MEDS: BENZTROPINE 1 MG TAB PO SCH ×2 (09:36→21:37)
[2021-11-09] MEDS: DULoxetine 30 MG CAP PO SCH (09:36)
[2021-11-09] MEDS: LIDOCAINE 5% 1 EACH PATCH TD SCH (09:37)
[2021-11-09] MEDS: MAGNESIUM OXIDE 400 MG TAB PO SCH ×2 (09:38→21:36)
[2021-11-09] MEDS: TOPIRAMATE TAB 25 MG TAB PO SCH ×2 (09:39→21:37)
[2021-11-09] MEDS: LISINOPRIL 20 MG TAB PO SCH (09:40)
[2021-11-09] MEDS: CYCLOBENZAPRINE 10 MG TAB PO SCH (21:35)
[2021-11-09] MEDS: traZODone 50 MG TAB PO SCH (21:35)
[2021-11-09] MEDS: QUEtiapine 200 MG TAB PO SCH (21:36)
[2021-11-09] MEDS: PRAVASTATIN 40 MG TAB PO SCH (21:37)
[2021-11-10] MEDS: ACETAMINOPHEN 325 MG TAB PO PRN (00:48)
[2021-11-10] MEDS: LEVOTHYROXINE 25 MCG TAB PO SCH (06:35)
[2021-11-10] MEDS: DULoxetine 30 MG CAP PO SCH (09:23)
[2021-11-10] MEDS: BENZTROPINE 1 MG TAB PO SCH (09:23)
[2021-11-10] MEDS: MAGNESIUM OXIDE 400 MG TAB PO SCH (09:25)
[2021-11-10] MEDS: MELOXICAM 7.5 MG TAB PO SCH (09:25)
[2021-11-10] MEDS: LIDOCAINE 5% 1 EACH PATCH TD SCH (09:25)
[2021-11-10] MEDS: TOPIRAMATE TAB 25 MG TAB PO SCH (09:26)
[2021-11-10 09:28] VITALS: BP 143/77
[2021-11-10] MEDS: LISINOPRIL 20 MG TAB PO SCH (09:28)
== END 2021-11-10 10:10 | disposition home or self-care (01) | DRG 885 ==
LOC: 3A 13:23 → UNDOADMIN 13:23 → 5A 20:54
PROVIDERS: ADMIT Psychiatry & Neurology Psychiatry; ATTEND Psychiatry & Neurology Psychiatry
DX: F25.9 Schizoaffective disorder, unspecified (principal); Z20.822 Contact with and (suspected) exposure to COVID-19; F32.A Depression, unspecified; I10 Essential (primary) hypertension; M54.9 Dorsalgia, unspecified; E66.01 Morbid (severe) obesity due to excess calories; Z68.41 Body mass index [BMI] 40.0-44.9, adult; E78.5 Hyperlipidemia, unspecified; G89.29 Other chronic pain; R73.03 Prediabetes; Z71.3 Dietary counseling and surveillance; Z82.49 Family history of ischemic heart disease and other diseases of the circulatory system; Z79.899 Other long term (current) drug therapy; Z88.8 Allergy status to other drugs, medicaments and biological substances; R45.851 Suicidal ideations
CPT/HCPCS: 36415; 80053; 80061; 80074; 82962; 83036; 84443; 85025; G0378; U0003